=== PATIENT | male | born 1970 | race Caucasian/White ===

== ENCOUNTER → 2021-01-26 10:50 | Outpatient (BNVA) | payer SELFPAY | PROVIDERS: PCP Family Medicine; Visit Provider Internal Medicine Rheumatology | DX: M19.90 Unspecified osteoarthritis, unspecified site (principal); K50.90 Crohn's disease, unspecified, without complications; Z79.899 Other long term (current) drug therapy; M76.61 Achilles tendinitis, right leg; M76.62 Achilles tendinitis, left leg; Z11.59 Encounter for screening for other viral diseases; Z11.1 Encounter for screening for respiratory tuberculosis; Z71.85 Encounter for immunization safety counseling; F17.210 Nicotine dependence, cigarettes, uncomplicated | CPT/HCPCS: 99204 ==

== ENCOUNTER 2021-01-26 12:37 | Outpatient (CLI) | payer MEDICAID, SELFPAY ==
--- NOTE | 2021-01-26 12:46 | XR_ITS ---
WS: [email or web address] Lumbar spine, 3 views, 01/26/2021 Clinical Data: Z79.899 - Other [facility] (current) drug therapy Comparison: None. Findings: No compression fractures or subluxation is seen. There is degenerative disc narrowing at L5-S1. The t ransverse processes and SI joints are normal. There is minimal osteoarthritic spurring from L1 through L5. There are clips in the right upper quadr ant from a cholecystectomy. XR/XR lumbar spine 2-3V* [id number] Impression: 1. Degenerative disc narrowing at L5-S1. 2. Minimal osteoarthritis from L1 through L5.
--- NOTE | 2021-01-26 12:46 | XR_ITS ---
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 Findings: No fractures or dislocations are seen. The soft tissues are unremarkable. The joint spaces are normal No periarticular demineralization or calcifications are seen. XR/XR hand LT min 3V* 13705 Impression: Negative left hand.
--- NOTE | 2021-01-26 12:46 | XR_ITS ---
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 Findings: No fractures or dislocations are seen. No bone destruction or erosion is noted. There is osteoarthrit ic narrowing of the right first MTP joint. There is a plantar spur.No periarticular demineralization or calcifications are seen. 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
--- NOTE | 2021-01-26 12:46 | XR_ITS ---
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 Findings: No fractures or dislocations are seen. No bone destruction or erosion is noted. There is osteoarthrit ic narrowing of the left first MTP joint. No periarticular demineralization or calcifications are see n. There is a plantar spur. 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
--- NOTE | 2021-01-26 12:46 | XR_ITS ---
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 Findings: No fractures or dislocations are seen. The SI joints and pubic symphysis are intact. The soft tissues are not remarkable. XR/XR pelvis 1-2V* [id number] Impression: Negative pelvis.
--- NOTE | 2021-01-26 12:46 | XR_ITS ---
WS: [email or web address] Right hand, 3 views, 01/26/2021 Clinical Data: Z79.899 - Other half-way (current) drug therapy Comparison: None. Findings: No new fractures or dislocations are seen. There is a healed fracture of the head of the right fifth carpal. The soft tissues are unremarkable. The joint spaces are normal No periarticular demineralization or calcifications are seen. XR/XR hand RT min 3V* [id number] Impression: Negative right hand.
--- NOTE | 2021-01-26 12:46 | XR_ITS ---
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 Findings: No nodules, masses or effusions are seen. The heart is normal. The pulmonary vascularity is not increased. No pneumonia or pneumothorax is seen. XR/XR chest 2V* [id number] Impression: Negative chest.
[2021-01-26 14:08] LABS: Basophils # 0.1 10^3/uL (0.0-0.1); Basophils % 0.8 %; Eosinophils # 0.3 10^3/uL (0.0-0.8); Eosinophils % 3.5 %; Hematocrit 44.2 % (42.0-52.0); Hemoglobin 14.4 g/dL (11.7-16.6); Lymphocytes # 1.6 10^3/uL (0.8-4.8); Lymphocytes % 21.1 %; Mean Corpuscular HGB Conc 32.6 g/dL (30.0-36.0); Mean Corpuscular Hemoglobin 30.4 pg (28.0-34.0); Mean Corpuscular Volume 93.4 fl (80-94); Mean Platelet Volume 9.9 fL (7.4-10.4); Monocytes # 0.7 10^3/uL (0.2-0.9); Monocytes % 8.9 %; Neutrophils # 5.08 10^3/uL (1.8-7.7); Neutrophils % 65.4 %; Nucleated Red Blood Cells % 0 %; Platelet Count 210 10^3/cmm (130-400); Red Blood Count 4.73 10^6/uL (4.1-5.3); Red Cell Distribution Width 12.2 % (12.1-15.1); White Blood Count 7.8 10^3/uL (4.0-10.0)
[2021-01-26 14:23] LABS: Alanine Aminotransferase 31 U/L (0-41); Albumin Level 4.1 g/dL (3.5-5.2); Alkaline Phosphatase 69 IU/L (40-130); Aspartate Amino Transferase 17 U/L (0-40); C Reactive Protein 1.2 mg/L (0.0-4.9); Globulin 2.9 g/dL (1.3-4.6); Glomerular Filtration Rate 103.2 mL/min (90-130); Total Bilirubin 0.2 mg/dL (0.15-1.2)
[2021-01-26 14:54] LABS: Hepatitis B Core AB, Total Non-Reactive (Nonreactive); Hepatitis B Surface Antigen Non-Reactive (Nonreactive); Hepatitis C Virus Antibody Non-Reactive (Nonreactive)
[2021-01-26 15:44] LABS: 25 Hydroxy Vitamin D 25 ng/mL (30-100)
[2021-01-27 14:56] LABS: Cyclic Citrullinated Peptide <16 UNITS
[2021-01-28 12:57] LABS: HLA-B27 NEGATIVE (NEGATIVE)
[2021-01-28 14:48] LABS: Quantiferon Mitogen 9.53 IU/mL; Quantiferon Nil 0.01 IU/mL; Quantiferon Plus TB1 0.02 IU/mL; Quantiferon Plus TB2 0.05 IU/mL; Quantiferon TB Gold NEGATIVE (NEGATIVE)
[2021-01-28 16:48] LABS: Erythrocyte Sedimentation Rate 2 mm/hr (0-10)
== END 2021-01-26 12:38 | disposition home or self-care (01) ==
LOC: RAD 12:43
PROVIDERS: PCP Family Medicine; Visit Provider Internal Medicine Rheumatology
DX: M19.90 Unspecified osteoarthritis, unspecified site (principal); M45.6 Ankylosing spondylitis lumbar region; Z79.899 Other long term (current) drug therapy; Z11.59 Encounter for screening for other viral diseases; Z11.1 Encounter for screening for respiratory tuberculosis
CPT/HCPCS: 36415; 71046; 72100; 72170; 73130; 73630; 80076; 82306; 82565; 85025; 85651; 86140; 86200; 86431; 86480; 86704; 86803; 86812; 87340